=== PATIENT | female | born 2000 | race Caucasian/White ===

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

== ENCOUNTER → 2021-05-03 | Outpatient (CLI) | payer OTHER ==
[2021-05-03 23:24] LABS: Follicle Stimulating Hormone 4.8 mIU/mL; Luteinizing Hormone 10.7 mIU/mL; Prolactin 23.4 ng/mL (2.800-29.200)
[2021-05-03 23:56] LABS: Basophils # (A) 0.04 X 10*3/uL (0.00-0.10); Basophils % (A) 0.5 %; Eosinophils # (A) 0.14 X 10*3/uL (0.04-0.35); Eosinophils % (A) 1.9 %; HCT 40.7 % (37.2-46.3); HGB 12.9 g/dL (12.0-15.0); Immature Grans, Automated 0.5 %; Lymphocytes # (A) 2.41 X 10*3/uL (0.90-5.00); Lymphocytes % (A) 32.6 %; MCH 29.5 pg (27.0-32.0); MCHC 31.7 g/dL (32.0-37.0); MCV 93.1 fL (80.0-97.0); Mean Platelet Volume 11.4 fL (9.5-12.2); Monocytes # (A) 0.68 X 10*3/uL (0.20-1.00); Monocytes % (A) 9.2 %; NRBC Per 100 WBC 0 /100 WBCS (0.0-0.0); Neutrophils # (A) 4.08 X 10*3/uL (1.80-7.70); Neutrophils % (A) 55.3 %; Platelet Count 212 X 10*3/uL (140-440); RBC 4.37 X 10*6/uL (4.10-5.20); RDW 12.7 % (11.5-14.5); WBC 7.39 X 10*3/uL (4.50-10.00)
== END | disposition home or self-care (01) ==
LOC: LABWHC1 16:22
DX: N92.6 Irregular menstruation, unspecified (principal); N64.3 Galactorrhea not associated with childbirth
CPT/HCPCS: 36415; 83001; 83002; 84144; 84146; 84403; 84443; 85025

== ENCOUNTER 2022-02-28 09:34 | Emergency (ER) | payer OTHER ==
[2022-02-28 09:45] VITALS: RESP 18; TEMP 98.1
--- NOTE | 2022-02-28 10:22 | ED ---
Female Urogenital HPI - General Chief complaint: Vaginal Bleeding Stated complaint: vaginal bleeding - 5 weeks Time Seen by Provider: 02/28/22 09:50 Source: patient, RN notes reviewed Mode of arrival: ambulatory Limitations: no limitations - History of Present Illness Initial comments: This is a 22-year-old female who presents to the emergency department for vaginal bleeding in . She is and approximately 5 weeks . She has an appointment with Dr. William next month and her first ultrasound is scheduled for 1 week from now. The bleeding started 3 days ago and she states that it has been fairly light. Denies passing any clots. She has minor lower abdominal discomfort and nausea. However, she states that she's had nausea since she found out that she was a couple of weeks ago. She had been taking Prozac for depression and a personality disorder. She was told by the prescribing provider at [facility] that she had to stop this cold turkey due to the , and she feels like her mood has been significantly impacted. However, during her in 2018, she was given permission by her laboratory scientist to take this and had no problems with it. She inquired as to if she could resume this. Denies any fevers, chills, sore throat, cough, dyspnea, chest pain, palpitations, vomiting, diarrhea, back pain, or headaches. MD Complaint: vaginal bleeding Onset/Timin -: days(s) Patient : Yes Number of weeks : 5 - Related Data Home Medications Medication Instructions Recorded Confirmed Acetaminophen [Tylenol] 1,000 mg PO Q3H PRN 09/17/19 09/17/19 Ibuprofen [Motrin Ib] 600 mg PO Q3H PRN 09/17/19 09/17/19 Previous Rx's Medication Instructions Recorded Amoxicillin 875 mg PO Q12HR #20 tablet 09/14/19 Levofloxacin [Levaquin] 500 mg PO DAILY #10 tab 09/17/19 Doxylamine Succinate/Vit B6 1 each PO QID PRN #30 tab 02/28/22 [Doxylamine-Pyridoxine 10-10 mg] Allergies Allergy/AdvReac Type Severity Reaction Status Date / Time methylphenidate Allergy Confusion Verified 02/28/22 09:45 [From Concerta] Review of Systems ROS Statement: Those systems with pertinent positive or pertinent negative responses have been documented in the HPI. ROS Other: All systems not noted in ROS Statement are negative. Past Medical History Past Medical History: No Reported History History of Any Multi-Drug Resistant Organisms: None Reported Past Surgical History: Section Past Anesthesia/Blood Transfusion Reactions: Unable to Obtain Past Psychological History: Anxiety, Depression Smoking Status: Vaper Past Alcohol Use History: Occasional Past Drug Use History: Marijuana General Exam Limitations: no limitations General appearance: alert, in no apparent distress Head exam: Present: atraumatic, normocephalic, normal inspection Respiratory exam: Present: normal lung sounds bilaterally. Absent: respiratory distress, wheezes, rales, rhonchi, stridor Cardiovascular Exam: Present: regular rate, normal rhythm, normal heart sounds. Absent: systolic murmur, diastolic murmur, rubs, gallop, clicks GI/Abdominal exam: Present: normal bowel sounds Neurological exam: Present: alert, oriented X3, CN II-XII intact Psychiatric exam: Present: normal affect, normal mood Skin exam: Present: warm, dry, intact, normal color. Absent: rash Course Vital Signs 02/28/22 02/28/22 09:43 12:39 Temperature 98.1 F Pulse Rate 68 67 Respiratory 18 18 Rate Blood Pressure 119/74 O2 Sat by Pulse 99 98 Oximetry Medical Decision Making - Medical Decision Making This is a 22-year-old female who presents to the emergency department for vaginal bleeding in . Was pt. sent in by a medical professional or institution? @ -No Did you speak to anyone other than the patient for history? @ -No Did you review nursing and triage notes? @ -Agree, accurate with regards to the patient's symptoms. Were old charts reviewed? @ -No Differential Diagnosis? @ Differential Vaginal Bleeding: Spontaneous , threatened , molar , ectopic , bloody show, incompetent cervix, abruptioplacenta, placenta previa, uterine rupture, dysfunctional uterine bleeding, hemorrhage, uterine fibroids, this is not meant to be an all-inclusive list. What testing was considered but not performed? (CT, X-rays, U/S, labs)? Why? @ -None What meds were considered but not given? Why? @ -None Did you discuss the management of the patient with other professionals? @ -No Did you reconcile home meds? @ -No Was smoking cessation discussed for >3mins.? @ -I discussed smoking cessation for greater than 3 minutes. The risk of smoking were discussed with the patient including but not limited to risks of cancer, stroke, coronary artery disease and COPD. Also discussed with patient were multiple methods of quitting smoking. Lastly we discussed the financial cost of smoking. Was critical care preformed (if so, how long)? @ -No Were there social determinants of health that impacted care today? How? (Homelessness, low income, unemployed, alcoholism, drug addiction, transportation, low edu. Level, literacy, decrease access to med. care, nursing home, rehab)? @ -No Was there de-escalation of care discussed even if they declined? (Discuss DNR or withdrawal of care, Hospice)? @ -No What co-morbidities impacted this encounter? (DM, HTN, Smoking, COPD, CAD, Cancer, CVA, Hep., AIDS, mental health diagnosis, sleep apnea, morbid obesity)? @ -Morbid obesity. Was patient admitted / discharged? @ -Discharged. Lab work obtained and found to be nonactionable. Urinalysis negative for signs of a UTI or bacteriuria. Patient is Rh+ and no RhoGAM is indicated. The ultrasound could not visualize an IUP, likely due to the patient not being far along enough in her . She is instructed to contact her laboratory scientist for a lab order to have the hCG repeated in 2 days. She will also follow-up for a repeat ultrasound as scheduled in 1 week. Prescription for diclegis provided for the nausea and vomiting. Dosing instructions reviewed. Advised that if this is not covered by insurance or if it is too expensive, she can purchase [id number] vitamin B6 and Unisom. Instructed her to take Tylenol as needed for pain and to begin taking a vitamin. With regards to the Prozac, she is advised to contact her laboratory scientist for clearance to resume this. Undiagnosed new problem with uncertain prognosis? @ -None Drug Therapy requiring intensive monitoring for toxicity (Heparin, Nitro, Insulin, Cardizem)? @ -None Were any procedures done? @ -None Diagnosis/symptom? @ -Vaginal bleeding in Acute, or Chronic, or Acute on Chronic? @ -Acute Uncomplicated (without systemic symptoms) or Complicated (systemic symptoms)? @ -Uncomplicated Side effects of treatment? @ -None Exacerbation, Progression, or Severe Exacerbation] @ -Not applicable Poses a threat to life or bodily function? @ -None this time. Return precautions reviewed in depth, the patient is instructed to return to the emergency department with any new, worsening, or concerning symptoms. Patient verbalized understanding. This case was discussed in detail with the attending ED physician, Dr. Adames. Presentation, findings, and treatment plan discussed in detail as well. - Lab Data Result diagrams: 02/28/22 10:26 02/28/22 10:26 Lab Results 02/28/22 02/28/22 02/28/22 Range/Units 10:26 10: 10:26 WBC 6.5 (3.8-10.6) k/uL RBC 4.53 (3.80-5.40) m/uL Hgb 13.0 (11.4-16.0) gm/dL Hct 39.1 (34.0-46.0) % MCV 86.3 (80.0-100.0) fL MCH 28.7 (25.0-35.0) pg MCHC 33.3 (31.0-37.0) g/dL RDW 13.3 (11.5-15.5) % Plt Count 215 (150-450) k/uL MPV 8.1 Neutrophils % 64 % Lymphocytes % 25 % Monocytes % 6 % Eosinophils % 2 % Basophils % 0 % Neutrophils # 4.1 (1.3-7.7) k/uL Lymphocytes # 1.7 (1.0-4.8) k/uL Monocytes # 0.4 (0-1.0) k/uL Eosinophils # 0.2 (0-0.7) k/uL Basophils # 0.0 (0-0.2) k/uL PT (9.0-12.0) sec INR (<1.2) APTT (22.0-30.0) sec Sodium 139 (137-145) mmol/L Potassium 4.0 (3.5-5.1) mmol/L Chloride 108 H (98-107) mmol/L Carbon Dioxide 25 (22-30) mmol/L Anion Gap 6 mmol/L BUN 7 (7-17) mg/dL Creatinine 0.50 L (0.52-1.04) mg/dL Est GFR (CKD-EPI)AfAm >90 (>60 ml/min/1.73 sqM) Est GFR (CKD-EPI)NonAf >90 (>60 ml/min/1.73 sqM) Glucose 92 (74-99) mg/dL Calcium 9.0 (8.4-10.2) mg/dL Total Bilirubin 0.2 (0.2-1.3) mg/dL AST 32 (14-36) U/L ALT 47 H (4-34) U/L Alkaline Phosphatase 69 (38-126) U/L Total Protein 7.4 (6.3-8.2) g/dL Albumin 4.3 (3.5-5.0) g/dL HCG, Quant 5829.6 mIU/mL Urine Color Yellow Urine Appearance Clear (Clear) Urine pH 6.5 (5.0-8.0) Ur Specific [place] 1.023 (1.001-1.035) Urine Protein Negative (Negative) Urine Glucose (UA) Negative (Negative) Urine Ketones Negative (Negative) Urine Blood Negative (Negative) Urine Nitrite Negative (Negative) Urine Bilirubin Negative (Negative) Urine Urobilinogen <2.0 (<2.0) mg/dL Ur Leukocyte Esterase Negative (Negative) Blood Type Blood Type Recheck Bld Type Recheck Status 02/28/22 02/28/22 Range/Units 10:26 10:26 WBC (3.8-10.6) k/uL RBC (3.80-5.40) m/uL Hgb (11.4-16.0) gm/dL Hct (34.0-46.0) % MCV (80.0-100.0) fL MCH (25.0-35.0) pg MCHC (31.0-37.0) g/dL RDW (11.5-15.5) % Plt Count (150-450) k/uL MPV Neutrophils % % Lymphocytes % % Monocytes % % Eosinophils % % Basophils % % Neutrophils # (1.3-7.7) k/uL Lymphocytes # (1.0-4.8) k/uL Monocytes # (0-1.0) k/uL Eosinophils # (0-0.7) k/uL Basophils # (0-0.2) k/uL PT 9.9 (9.0-12.0) sec INR 0.9 (<1.2) APTT 23.0 (22.0-30.0) sec Sodium (137-145) mmol/L Potassium (3.5-5.1) mmol/L Chloride (98-107) mmol/L Carbon Dioxide (22-30) mmol/L Anion Gap mmol/L BUN (7-17) mg/dL Creatinine (0.52-1.04) mg/dL Est GFR (CKD-EPI)AfAm (>60 ml/min/1.73 sqM) Est GFR (CKD-EPI)NonAf (>60 ml/min/1.73 sqM) Glucose (74-99) mg/dL Calcium (8.4-10.2) mg/dL Total Bilirubin (0.2-1.3) mg/dL AST (14-36) U/L ALT (4-34) U/L Alkaline Phosphatase (38-126) U/L Total Protein (6.3-8.2) g/dL Albumin (3.5-5.0) g/dL HCG, Quant mIU/mL Urine Color Urine Appearance (Clear) Urine pH (5.0-8.0) Ur Specific [place] (1.001-1.035) Urine Protein (Negative) Urine Glucose (UA) (Negative) Urine Ketones (Negative) Urine Blood (Negative) Urine Nitrite (Negative) Urine Bilirubin (Negative) Urine Urobilinogen (<2.0) mg/dL Ur Leukocyte Esterase (Negative) Blood Type A Positive Blood Type Recheck A Pos Bld Type Recheck Status No - Radiology Data Radiology results: report reviewed, image reviewed Disposition Clinical Impression: Vaginal bleeding during Disposition: HOME SELF-CARE Instructions (If sedation given, give patient instructions): Threatened Miscarriage (ED), Non-Threatening First Trimester Vaginal Bleed (ED) Additional Instructions: Return to the emergency department with any new, worsening, or concerning symptoms. You can take the Diclegis up to 4 times daily as needed for nausea and vomiting. If your insurance will not cover it or if it is too expensive, you can purchases [id number] vitamin B6 and Unisom. Your current hCG level is 5829.6, because the ultrasound could not visualize anything, you will need to have this repeated in 2 days. Contact your laboratory scientist office to have this ordered. Additionally, speak with your laboratory scientist office about resuming the Prozac. Begin taking a vitamin and be sure that you're only taking Tylenol as needed for any pain. Prescriptions: Doxylamine Succinate/Vit B6 [Doxylamine-Pyridoxine 10-10 mg] 1 each PO QID PRN #30 tab PRN Reason: Nausea And Vomiting Is patient prescribed a controlled substance at d/c from ED?: No Referrals: Ag Chairez MD [Primary Care Provider] - 1-2 days
[2022-02-28 10:37] LABS: Basophils % (A) 0 %; Eosinophils # (A) 0.2 k/uL (0-0.7); Eosinophils % (A) 2 %; HCT 39.1 % (34.0-46.0); Lymphocytes # (A) 1.7 k/uL (1.0-4.8); Lymphocytes % (A) 25 %; MCH 28.7 pg (25.0-35.0); MCHC 33.3 g/dL (31.0-37.0); MCV 86.3 fL (80.0-100.0); Mean Platelet Volume 8.1; Monocytes # (A) 0.4 k/uL (0-1.0); Monocytes % (A) 6 %; Neutrophils # (A) 4.1 k/uL (1.3-7.7); Neutrophils % (A) 64 %; Platelet Count 215 k/uL (150-450); RBC 4.53 m/uL (3.80-5.40); RDW 13.3 % (11.5-15.5); WBC 6.5 k/uL (3.8-10.6)
[2022-02-28 10:47] LABS: INR 0.9 (<1.2); Prothrombin Time 9.9 sec (9.0-12.0)
[2022-02-28 10:49] LABS: ALT 47 U/L (4-34); AST 32 U/L (14-36); African American GFR (CKD) >90 (>60 ml/min/1.73 sqM); Albumin 4.3 g/dL (3.5-5.0); Alkaline Phosphatase 69 U/L (38-126); Anion Gap 6 mmol/L; Blood Urea Nitrogen 7 mg/dL (7-17); Carbon Dioxide 25 mmol/L (22-30); Chloride 108 mmol/L (98-107); Glucose 92 mg/dL (74-99); Non-African American GFR(CKD) >90 (>60 ml/min/1.73 sqM); Sodium 139 mmol/L (137-145); Total Bilirubin 0.2 mg/dL (0.2-1.3); Total Protein 7.4 g/dL (6.3-8.2)
[2022-02-28 10:56] LABS: Appearance,Urine Clear (Clear); Bilirubin,Urine Negative (Negative); Blood,Urine Negative (Negative); Color,Urine Yellow; Glucose,Urine (UA) Negative (Negative); Ketones,Urine Negative (Negative); Leukocyte Esterase,Urine Negative (Negative); Nitrite,Urine Negative (Negative); PH, Urine 6.5 (5.0-8.0); Protein,Urine Negative (Negative); Specific Gravity,Urine 1.023 (1.001-1.035); Urobilinogen,Urine <2.0 mg/dL (<2.0)
[2022-02-28 11:04] LABS: HCG,Quantitative Serum 5829.6 mIU/mL
--- NOTE | 2022-02-28 11:36 | US ---
EXAMINATION TYPE: Transabdominal DATE OF EXAM: 02/28/2022 11:13 AM COMPARISON: NONE CLINICAL HISTORY: Vaginal bleeding in . Spotting. No prior ultrasound yet with this pregnan cy. EXAM PERFORMED: Transvaginal (TV) and Transabdominal (TA) EXAM MEASUREMENTS: GESTATIONAL AGE / DATING Physician Established: Not yet established Dates by LMP: (5 weeks/2 days) EDC: 10/29/2022 Dates by First Scan: No previous this is first scan Dates by Current Scan for: No IUP seen at this time MATERNAL ANATOMY Uterus: 11.5 x 8.3 x 5.2 cm Right Ovary: 3.9 x 2.7 x 2.3 cm Left Ovary: 3.4 x 1.9 x 1.3 cm Post CDS / Adnexa: no free fluid Presence of free fluid: no Presence of corpus luteal cyst: right ovary = 2.0 x 1.9 x 1.6 cm GESTATION / SURVEY IUP: No IUP seen at this time Date of LMP: 01/22/2022, Beta HcG (if available): Available at end of ultrasound exam- 5, 829.6 No GS, YS or CRL visualized at time of scan. Endometrium appears thickened. Limited transvaginal ex am due to uterine size and penetration. IMPRESSION: No intrauterine seen. Differential diagnosis includes missed , normal too early to detect, or ectopic . Correlate clinically.
[2022-02-28 12:40] VITALS: BP 119/74; PULSE 67
== END 2022-02-28 12:39 | disposition home or self-care (01) ==
LOC: EC 09:34
DX: O20.9 Hemorrhage in early pregnancy, unspecified (principal); O99.341 Other mental disorders complicating pregnancy, first trimester; F41.9 Anxiety disorder, unspecified; F32.A Depression, unspecified; O99.331 Smoking (tobacco) complicating pregnancy, first trimester; F17.290 Nicotine dependence, other tobacco product, uncomplicated; F12.90 Cannabis use, unspecified, uncomplicated; Z88.8 Allergy status to other drugs, medicaments and biological substances; Z3A.01 Less than 8 weeks gestation of pregnancy
CPT/HCPCS: 36415; 76801; 76817; 80053; 81003; 84702; 85025; 85610; 85730; 86900; 86901; 99284

== ENCOUNTER 2022-03-02 15:52 | Emergency (ER) | payer OTHER ==
[2022-03-02 15:59] VITALS: BP 127/77; TEMP 97.9
--- NOTE | 2022-03-02 16:30 | ED ---
Female Urogenital HPI - General Chief complaint: Vaginal Bleeding Stated complaint: Vaginal Bleeding,5wks Time Seen by Provider: 03/02/22 16:21 Source: patient Mode of arrival: ambulatory Limitations: no limitations - History of Present Illness Initial comments: This patient is a 22-year-old woman who presents with complaint that she is having continued vaginal bleeding. This started 5 days ago. The patient was seen here 2 days ago and had workup. She does relate that she is between 5-6 weeks now. She is not having abdominal pain. No change in urination or bowel movements. No vomiting. There has been some occasional nausea. No fever or chills. MD Complaint: vaginal bleeding Onset/Timin -: days(s) Severity scale (1-10): 0 Consistency: constant Improves with: none Worsens with: none Patient : Yes Number of weeks : 5 Associated Symptoms: denies other symptoms - Related Data Home Medications Medication Instructions Recorded Confirmed FLUoxetine HCL [PROzac] 10 mg PO DAILY 03/02/22 03/02/22 FLUoxetine HCL [PROzac] 20 mg PO DAILY 03/02/22 03/02/22 Vit No.179/Iron/Folic 1 tab PO HS 03/02/22 03/02/22 [ Tablet] Allergies Allergy/AdvReac Type Severity Reaction Status Date / Time methylphenidate AdvReac Confusion Verified 03/02/22 17:31 [From Concerta] Review of Systems ROS Statement: Those systems with pertinent positive or pertinent negative responses have been documented in the HPI. ROS Other: All systems not noted in ROS Statement are negative. Constitutional: Denies: fever, chills Respiratory: Denies: cough, dyspnea Cardiovascular: Denies: chest pain, palpitations, edema Gastrointestinal: Reports: nausea. Denies: abdominal pain, vomiting, diarrhea, constipation Genitourinary: Reports: as per HPI, abnormal menses. Denies: dysuria, hematu mina, discharge Musculoskeletal: Denies: back pain Skin: Denies: rash Neurological: Denies: headache, weakness Past Medical History Past Medical History: No Reported History History of Any Multi-Drug Resistant Organisms: None Reported Past Surgical History: Section Past Anesthesia/Blood Transfusion Reactions: Unable to Obtain Past Psychological History: Anxiety, Depression Smoking Status: Current every day smoker, Vaper Past Alcohol Use History: Occasional Past Drug Use History: Marijuana General Exam Limitations: no limitations General appearance: alert, in no apparent distress Head exam: Present: atraumatic, normocephalic Eye exam: Present: normal appearance. Absent: scleral icterus, conjunctival injection Neck exam: Present: normal inspection Respiratory exam: Present: normal lung sounds bilaterally. Absent: respiratory distress, wheezes, rales, rhonchi, stridor Cardiovascular Exam: Present: regular rate, normal rhythm, normal heart sounds. Absent: systolic murmur, diastolic murmur, rubs, gallop GI/Abdominal exam: Present: soft. Absent: distended, tenderness, guarding, rebound, rigid, mass Extremities exam: Present: normal inspection, normal capillary refill. Absent: pedal edema, calf tenderness Back exam: Present: normal inspection. Absent: CVA tenderness (R), CVA tenderness (L) Neurological exam: Present: alert Skin exam: Present: warm, dry, intact, normal color. Absent: rash Course Vital Signs 03/02/22 03/02/22 15:56 20:36 Temperature 97.9 F Pulse Rate 81 73 Respiratory 18 16 Rate Blood Pressure 127/77 O2 Sat by Pulse 97 97 Oximetry Medical Decision Making - Medical Decision Making Patient is 22-year-old woman here with first trimester vaginal bleeding. She did have lab testing as well as ultrasound which does not show acute surgical condition. She'll follow with her warehouse guard. We discussed appropriate follow-up as well as return parameters Was pt. sent in by a medical professional or institution? @ -no Did you speak to anyone other than the patient for history? @ -[no Did you review nursing and triage notes? @ -[agree Were old charts reviewed? @ -[Previous ER record Differential Diagnosis? @ -[threatened miscarriage, implantation bleeding, subchorionic hemorrhge, ectopic , among other conditions EKG interpreted by me (3pts min.)? @ -[none] X-rays interpreted by me (1pt min.)? @ -[none] CT interpreted by me (1pt min.)? @ -[none] U/S interpreted by me (1pt. min.)? @ -[none] What testing was considered but not performed? (CT, X-rays, U/S, labs)? Why? @ [no What meds were considered but not given? Why? @ -[none] Did you discuss the management of the patient with other professionals? @ -no Did you reconcile home meds? @ -[none] Was smoking cessation discussed for >3mins.? @ -[none] Was critical care preformed (if so, how long)? @ -[none] Were there social determinants of health that impacted care today? How? (Homelessness, low income, unemployed, alcoholism, drug addiction, transportation, low edu. Level, literacy, decrease access to med. care, fci, rehab)? @ -[no Was there de-escalation of care discussed even if they declined? (Discuss DNR or withdrawal of care, Hospice)? @ -[no What co-morbidities impacted this encounter? (DM, HTN, Smoking, COPD, CAD, Cancer, CVA, Hep., AIDS, mental health diagnosis, sleep apnea, morbid obesity)? @ -[no Was patient admitted / discharged? @ -[Discharged Undiagnosed new problem with uncertain prognosis? @ -[none] Drug Therapy requiring intensive monitoring for toxicity (Heparin, Nitro, Insulin, Cardizem)? @ -[none] Were any procedures done? @ -[none] Diagnosis/symptom? @ -[Threatened miscarriage Acute, or Chronic, or Acute on Chronic? @ -[Acute Uncomplicated (without systemic symptoms) or Complicated (systemic symptoms)? @ -[Uncomplicated Side effects of treatment? @ -[none] Exacerbation, Progression, or Severe Exacerbation] @ -[no] Poses a threat to life or bodily function? @ -[no] - Lab Data Lab Results 03/02/22 03/02/22 Range/Units 17:16 17:16 HCG, Quant 82182.6 mIU/mL Urine Color Yellow Urine Appearance Clear (Clear) Urine pH 6.0 (5.0-8.0) Ur Specific [place] 1.027 (1.001-1.035) Urine Protein 1+ H (Negative) Urine Glucose (UA) Negative (Negative) Urine Ketones 2+ H (Negative) Urine Blood Large H (Negative) Urine Nitrite Negative (Negative) Urine Bilirubin Negative (Negative) Urine Urobilinogen <2.0 (<2.0) mg/dL Ur Leukocyte Esterase Trace H (Negative) Urine RBC >182 H (0-5) /hpf Urine WBC 7 H (0-5) /hpf Ur Squamous Epith Cells 3 (0-4) /hpf Hyaline Casts 2 (0-2) /lpf Urine Mucus Many H (None) /hpf Disposition Clinical Impression: Threatened miscarriage Disposition: HOME SELF-CARE Condition: Good Instructions (If sedation given, give patient instructions): Threatened Miscarriage (ED) Is patient prescribed a controlled substance at d/c from ED?: No Referrals: Ag Chairez MD [Primary Care Provider] - 1-2 days
[2022-03-02 17:43] LABS: Appearance,Urine Clear (Clear); Bilirubin,Urine Negative (Negative); Blood,Urine Large (Negative); Color,Urine Yellow; Glucose,Urine (UA) Negative (Negative); Hyaline Casts,Urine 2 /lpf (0-2); Ketones,Urine 2+ (Negative); Leukocyte Esterase,Urine Trace (Negative); Mucus,Urine Many /hpf; Nitrite,Urine Negative (Negative); Protein,Urine 1+ (Negative); RBC,Urine >182 /hpf (0-5); Specific Gravity,Urine 1.027 (1.001-1.035); Squamous Epithelial Cell,Urine 3 /hpf (0-4); Urobilinogen,Urine <2.0 mg/dL (<2.0); WBC,Urine 7 /hpf (0-5)
--- NOTE | 2022-03-02 20:00 | US ---
EXAMINATION TYPE: Transabdominal DATE OF EXAM: 03/02/2022 7:29 PM COMPARISON: Ultrasound 02/28/2022 CLINICAL HISTORY: first trimester bleeding. vaginal bleeding for 5 days EXAM PERFORMED: Transvaginal (TV) and Transabdominal (TA) EXAM MEASUREMENTS: GESTATIONAL AGE / DATING Physician Established: Not yet established Dates by LMP: (5 weeks/4 days) EDC: 10/29/22 Dates by First Scan: no IUP visualized on prior exam Dates by Current Scan for: (5 weeks/3 days) - MSD EDC: 10/30/22 MATERNAL ANATOMY Uterus: 11.5 x 9.0 x 5.2cm Right Ovary: 4.3 x 2.3 x 2.3cm Left Ovary: 2.8 x 1.4 x 2.4cm Post CDS / Adnexa: appears wnl Presence of free fluid: no Presence of corpus luteal cyst: yes, hypoechoic area right ovary = 2.5 x 2.4 x 1.8cm Presence of subchorionic bleed: complex area superior to GS = 2.3cm, possible bleed GESTATION / SURVEY MSD: 0.8cm (5 weeks/3 days) Yolk Sac (normal less than 6mm): not seen IUP: possible GS visualized, no evidence of pole at this time Date of LMP: 01/22/22 Beta HcG (if available): 01090.6 IMPRESSION: Candidate for intrauterine gestational sac is visualized on this examination, not seen on the 02/28/19 ultrasound, with MSD corresponding with 5 weeks 3 days gestation. Short interval follow-up beta hC G and ultrasound recommended.
[2022-03-02 20:37] VITALS: PULSE 73; RESP 16
== END 2022-03-02 20:37 | disposition home or self-care (01) ==
LOC: EC 15:52
DX: O20.0 Threatened abortion (principal); O99.341 Other mental disorders complicating pregnancy, first trimester; F41.9 Anxiety disorder, unspecified; F32.A Depression, unspecified; O99.331 Smoking (tobacco) complicating pregnancy, first trimester; F17.200 Nicotine dependence, unspecified, uncomplicated; O99.321 Drug use complicating pregnancy, first trimester; F12.90 Cannabis use, unspecified, uncomplicated; Z88.8 Allergy status to other drugs, medicaments and biological substances; Z3A.01 Less than 8 weeks gestation of pregnancy
CPT/HCPCS: 36415; 76801; 76817; 81001; 84702; 99284

== ENCOUNTER 2022-03-04 23:56 | Emergency (ER) | payer OTHER ==
[2022-03-05 00:12] VITALS: TEMP 98.2
[2022-03-05 01:47] LABS: Basophils # (A) 0.1 k/uL (0-0.2); Basophils % (A) 1 %; Eosinophils # (A) 0.2 k/uL (0-0.7); Eosinophils % (A) 2 %; HGB 12.1 gm/dL (11.4-16.0); Lymphocytes # (A) 2.5 k/uL (1.0-4.8); Lymphocytes % (A) 30 %; MCH 28.9 pg (25.0-35.0); MCHC 33.6 g/dL (31.0-37.0); MCV 86.1 fL (80.0-100.0); Mean Platelet Volume 8.3; Monocytes # (A) 0.6 k/uL (0-1.0); Monocytes % (A) 7 %; Neutrophils # (A) 4.8 k/uL (1.3-7.7); Neutrophils % (A) 58 %; Platelet Count 226 k/uL (150-450); RBC 4.18 m/uL (3.80-5.40); RDW 13.5 % (11.5-15.5); WBC 8.3 k/uL (3.8-10.6)
--- NOTE | 2022-03-05 01:52 | ED ---
Female Urogenital HPI - General Chief complaint: Vaginal Bleeding Stated complaint: Bleeding, 6 wks preg Time Seen by Provider: 03/05/22 00:13 Source: patient, RN notes reviewed Mode of arrival: ambulatory Limitations: no limitations - History of Present Illness Initial comments: This is a 22-year-old female who presents to the emergency department for v aginal bleeding in . She is approximately 6 weeks and was evaluated here on 02/28 and 03/02 as well, and states she returns today because the bleeding has gotten heavier. She feels tired and had been changing a pad every 15 minutes. This did seem to improve to some extent, but she still wants to make sure that she is not losing too much blood. Denies any abdominal pain, nausea, or vomiting. Denies any fevers, chills, sore throat, cough, dyspnea, chest pain, palpita tions, abdominal pain, nausea, vomiting, diarrhea, back pain, or headaches. MD Complaint: vaginal bleeding Patient : Yes Number of weeks : 6 - Related Data Home Medications Medication Instructions Recorded Confirmed FLUoxetine HCL [PROzac] 10 mg PO DAILY 03/02/22 03/02/22 FLUoxetine HCL [PROzac] 20 mg PO DAILY 03/02/22 03/02/22 Vit No.179/Iron/Folic 1 tab PO HS 03/02/22 03/02/22 [ Tablet] Allergies Allergy/AdvReac Type Severity Reaction Status Date / Time methylphenidate AdvReac Confusion Verified 03/02/22 17:31 [From Concerta] Review of Systems ROS Statement: Those systems with pertinent positive or pertinent negative responses have been documented in the HPI. ROS Other: All systems not noted in ROS Statement are negative. Past Medical History Past Medical History: No Reported History History of Any Multi-Drug Resistant Organisms: None Reported Past Surgical History: Section Past Anesthesia/Blood Transfusion Reactions: Unable to Obtain Past Psychological History: Anxiety, Depression Smoking Status: Current every day smoker, Vaper Past Alcohol Use History: Occasional Past Drug Use History: Marijuana General Exam Limitations: no limitations General appearance: alert, in no apparent distress Head exam: Present: atraumatic, normocephalic, normal inspection Respiratory exam: Present: normal lung sounds bilaterally. Absent: respiratory distress, wheezes, rales, rhonchi, stridor Cardiovascular Exam: Present: regular rate, normal rhythm, normal heart sounds. Absent: systolic murmur, diastolic murmur, rubs, gallop, clicks GI/Abdominal exam: Present: normal bowel sounds Neurological exam: Present: alert, oriented X3, CN II-XII intact Psychiatric exam: Present: normal affect, normal mood Skin exam: Present: warm, dry, intact, normal color. Absent: rash Course Vital Signs 03/05/22 03/05/22 00:09 02:48 Temperature 98.2 F Pulse Rate 81 78 Respiratory 18 15 Rate Blood Pressure 151/82 133/74 O2 Sat by Pulse 97 100 Oximetry Medical Decision Making - Medical Decision Making This is a 22-year-old female who presents to the emergency department for vaginal bleeding in . Was pt. sent in by a medical professional or institution? @ -No Did you speak to anyone other than the patient for history? @ -No Did you review nursing and triage notes? @ -Yes, and I agree, it is accurate with regards to the patient's symptoms. Were old charts reviewed? @ -No Differential Diagnosis? @ -Differential Vaginal Bleeding: Spontaneous , threatened , molar , ectopic , incompetent cervix, placenta previa, uterine rupture, dysfunctional uterine bleeding, hemorrhage, uterine fibroids, malignancy, coagulopathy, PID, cervicitis, adenomyosis, vaginal trauma, this is not meant to be an all- inclusive list. What testing was considered but not performed? (CT, X-rays, U/S, labs)? Why? @ -None What meds were considered but not given? Why? @ -None Did you discuss the management of the patient with other professionals? @ -No Did you reconcile home meds? @ -No Was smoking cessation discussed for >3mins.? @ -No Was critical care preformed (if so, how long)? @ -No Were there social determinants of health that impacted care today? How? (Home lessness, low income, unemployed, alcoholism, drug addiction, transportation, low edu. Level, literacy, decrease access to med. care, longterm, rehab)? @ -No Was there de-escalation of care discussed even if they declined? (Discuss DNR or withdrawal of care, Hospice)? @ -No What co-morbidities impacted this encounter? (DM, HTN, Smoking, COPD, CAD, Cancer, CVA, Hep., AIDS, mental health diagnosis, sleep apnea, morbid obesity)? @ -Morbid obesity Was patient admitted / discharged? @ -Discharged. Lab work obtained revealing no evidence of acute blood loss anemia. When compared to her hCG level 3 days ago, this has started to decrease. Given the persistent bleeding and the decrease in hCG level, this is most consistent with an incomplete . This was discussed with the patient who expresses understanding. Advised that she will need to contact her BRACER and have her blood work repeated to ensure that the hCG level reaches 0. Advised that she may continue to have heavy bleeding, however if she begins to feel dizzy or lightheaded, she should return to the emergency department immediately. She declines the need for any nausea medication at this time. Undiagnosed new problem with uncertain prognosis? @ -None Drug Therapy requiring intensive monitoring for toxicity (Heparin, Nitro, Insulin, Cardizem)? @ -None Were any procedures done? @ -None Diagnosis/symptom? @ -Incomplete Acute, or Chronic, or Acute on Chronic? @ -Acute Uncomplicated (without systemic symptoms) or Complicated (systemic symptoms)? @ -Uncomplicated Side effects of treatment? @ -None Exacerbation, Progression, or Severe Exacerbation] @ -Progression of bleeding Poses a threat to life or bodily function? @ -Not at this time, however if she loses too much blood, it can become a life threatening issue. Return precautions reviewed in depth, the patient is instructed to return to the emergency department with any new, worsening, or concerning symptoms. Patient verbalized understanding. This case was discussed in detail with the attending ED physician, Dr. French. Presentation, findings, and treatment plan discussed in detail as well. - Lab Data Result diagrams: 03/05/22 01:06 03/05/22 01:06 Lab Results 03/05/22 03/05/22 03/05/22 Range/Units 01:06 01:06 01:06 WBC 8.3 (3.8-10.6) k/uL RBC 4.18 (3.80-5.40) m/uL Hgb 12.1 (11.4-16.0) gm/dL Hct 36.0 (34.0-46.0) % MCV 86.1 (80.0-100.0) fL MCH 28.9 (25.0-35.0) pg MCHC 33.6 (31.0-37.0) g/dL RDW 13.5 (11.5-15.5) % Plt Count 226 (150-450) k/uL MPV 8.3 Neutrophils % 58 % Lymphocytes % 30 % Monocytes % 7 % Eosinophils % 2 % Basophils % 1 % Neutrophils # 4.8 (1.3-7.7) k/uL Lymphocytes # 2.5 (1.0-4.8) k/uL Monocytes # 0.6 (0-1.0) k/uL Eosinophils # 0.2 (0-0.7) k/uL Basophils # 0.1 (0-0.2) k/uL PT 10.0 (9.0-12.0) sec INR 0.9 (<1.2) APTT 24.2 (22.0-30.0) sec Sodium (137-145) mmol/L Potassium (3.5-5.1) mmol/L Chloride (98-107) mmol/L Carbon Dioxide (22-30) mmol/L Anion Gap mmol/L BUN (7-17) mg/dL Creatinine (0.52-1.04) mg/dL Est GFR (CKD-EPI)AfAm (>60 ml/min/1.73 sqM) Est GFR (CKD-EPI)NonAf (>60 ml/min/1.73 sqM) Glucose (74-99) mg/dL Calcium (8.4-10.2) mg/dL Total Bilirubin (0.2-1.3) mg/dL AST (14-36) U/L ALT (4-34) U/L Alkaline Phosphatase (38-126) U/L Total Protein (6.3-8.2) g/dL Albumin (3.5-5.0) g/dL HCG, Quant mIU/mL Urine Color Red Urine Appearance Cloudy H (Clear) Urine pH 6.0 (5.0-8.0) Ur Specific [place] 1.024 (1.001-1.035) Urine Protein 1+ H (Negative) Urine Glucose (UA) Negative (Negative) Urine Ketones 1+ H (Negative) Urine Blood Large H (Negative) Urine Nitrite Negative (Negative) Urine Bilirubin Negative (Negative) Urine Urobilinogen 2.0 (<2.0) mg/dL Ur Leukocyte Esterase Small H (Negative) Urine RBC >182 H (0-5) /hpf Urine WBC 7 H (0-5) /hpf Ur Squamous Epith Cells 6 H (0-4) /hpf Urine Mucus Few H (None) /hpf Urine Yeast (Budding) Many H (None) /hpf Blood Type Blood Type Recheck Bld Type Recheck Status 03/05/22 03/05/22 Range/Units 01:06 01:40 WBC (3.8-10.6) k/uL RBC (3.80-5.40) m/uL Hgb (11.4-16.0) gm/dL Hct (34.0-46.0) % MCV (80.0-100.0) fL MCH (25.0-35.0) pg MCHC (31.0-37.0) g/dL RDW (11.5-15.5) % Plt Count (150-450) k/uL MPV Neutrophils % % Lymphocytes % % Monocytes % % Eosinophils % % Basophils % % Neutrophils # (1.3-7.7) k/uL Lymphocytes # (1.0-4.8) k/uL Monocytes # (0-1.0) k/uL Eosinophils # (0-0.7) k/uL Basophils # (0-0.2) k/uL PT (9.0-12.0) sec INR (<1.2) APTT (22.0-30.0) sec Sodium 138 (137-145) mmol/L Potassium 3.6 (3.5-5.1) mmol/L Chloride 106 (98-107) mmol/L Carbon Dioxide 25 (22-30) mmol/L Anion Gap 7 mmol/L BUN 7 (7-17) mg/dL Creatinine 0.63 (0.52-1.04) mg/dL Est GFR (CKD-EPI)AfAm >90 (>60 ml/min/1.73 sqM) Est GFR (CKD-EPI)NonAf >90 (>60 ml/min/1.73 sqM) Glucose 87 (74-99) mg/dL Calcium 9.4 (8.4-10.2) mg/dL Total Bilirubin 0.2 (0.2-1.3) mg/dL AST 27 (14-36) U/L ALT 44 H (4-34) U/L Alkaline Phosphatase 67 (38-126) U/L Total Protein 7.1 (6.3-8.2) g/dL Albumin 4.3 (3.5-5.0) g/dL HCG, Quant 81649.4 mIU/mL Urine Color Urine Appearance (Clear) Urine pH (5.0-8.0) Ur Specific [place] (1.001-1.035) Urine Protein (Negative) Urine Glucose (UA) (Negative) Urine Ketones (Negative) Urine Blood (Negative) Urine Nitrite (Negative) Urine Bilirubin (Negative) Urine Urobilinogen (<2.0) mg/dL Ur Leukocyte Esterase (Negative) Urine RBC (0-5) /hpf Urine WBC (0-5) /hpf Ur Squamous Epith Cells (0-4) /hpf Urine Mucus (None) /hpf Urine Yeast (Budding) (None) /hpf Blood Type A Positive Blood Type Recheck A Pos Bld Type Recheck Status No Disposition Clinical Impression: Incomplete Disposition: HOME SELF-CARE Instructions (If sedation given, give patient instructions): Miscarriage (ED) Additional Instructions: Return to the emergency department with any new, worsening, or concerning symptoms. Contact your BRACER and let her know that your hCG count has started to decrease. You will need to have your blood work repeated to make sure that this value reaches zero. Is patient prescribed a controlled substance at d/c from ED?: No Referrals: Ag Chairez MD [Primary Care Provider] - 1-2 days
[2022-03-05 01:57] LABS: INR 0.9 (<1.2); Partial Thromboplastin Time 24.2 sec (22.0-30.0)
[2022-03-05 01:59] LABS: ALT 44 U/L (4-34); AST 27 U/L (14-36); African American GFR (CKD) >90 (>60 ml/min/1.73 sqM); Albumin 4.3 g/dL (3.5-5.0); Alkaline Phosphatase 67 U/L (38-126); Anion Gap 7 mmol/L; Blood Urea Nitrogen 7 mg/dL (7-17); Calcium 9.4 mg/dL (8.4-10.2); Carbon Dioxide 25 mmol/L (22-30); Chloride 106 mmol/L (98-107); Glucose 87 mg/dL (74-99); Non-African American GFR(CKD) >90 (>60 ml/min/1.73 sqM); Potassium 3.6 mmol/L (3.5-5.1); Sodium 138 mmol/L (137-145); Total Bilirubin 0.2 mg/dL (0.2-1.3); Total Protein 7.1 g/dL (6.3-8.2)
[2022-03-05 02:06] LABS: Appearance,Urine Cloudy (Clear); Bilirubin,Urine Negative (Negative); Blood,Urine Large (Negative); Budding Yeast,Urine Many /hpf; Color,Urine Red; Glucose,Urine (UA) Negative (Negative); Ketones,Urine 1+ (Negative); Leukocyte Esterase,Urine Small (Negative); Mucus,Urine Few /hpf; Nitrite,Urine Negative (Negative); Protein,Urine 1+ (Negative); RBC,Urine >182 /hpf (0-5); Specific Gravity,Urine 1.024 (1.001-1.035); Squamous Epithelial Cell,Urine 6 /hpf (0-4); WBC,Urine 7 /hpf (0-5)
[2022-03-05 02:15] LABS: HCG,Quantitative Serum 10567.4 mIU/mL
[2022-03-05 02:48] VITALS: BP 133/74; PULSE 78; RESP 15
== END 2022-03-05 02:49 | disposition home or self-care (01) ==
LOC: EC 23:56
DX: O03.4 Incomplete spontaneous abortion without complication (principal); O9A.512 Psychological abuse complicating pregnancy, second trimester; O99.321 Drug use complicating pregnancy, first trimester; O99.711 Diseases of the skin and subcutaneous tissue complicating pregnancy, first trimester; F41.9 Anxiety disorder, unspecified; F32.A Depression, unspecified; F12.90 Cannabis use, unspecified, uncomplicated; F17.290 Nicotine dependence, other tobacco product, uncomplicated; Z88.8 Allergy status to other drugs, medicaments and biological substances
CPT/HCPCS: 36415; 80053; 81001; 84702; 85025; 85610; 85730; 86900; 86901; 99284

== ENCOUNTER 2022-09-05 21:37 | Emergency (ER) | payer OTHER ==
[2022-09-05 21:49] VITALS: BP 147/94; PULSE 60; RESP 18; TEMP 98.5
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
--- NOTE | 2022-09-05 22:54 | XR ---
EXAM: XR Left Elbow Complete, 3 or More Views CLINICAL HISTORY: ITS.REASON XR Reason: pain TECHNIQUE: Frontal, lateral and oblique views of the left elbow. COMPARISON: No relevant prior studies available. FINDINGS: Bones/joints: Unremarkable. No fracture or dislocation. Soft tissues: Unremarkable. IMPRESSION: No fracture or dislocation.
== END 2022-09-05 23:16 | disposition home or self-care (01) ==
LOC: EC 21:37
DX: S53.402A Unspecified sprain of left elbow, initial encounter (principal); F32.A Depression, unspecified; F41.9 Anxiety disorder, unspecified; F17.290 Nicotine dependence, other tobacco product, uncomplicated; F12.90 Cannabis use, unspecified, uncomplicated; Z88.8 Allergy status to other drugs, medicaments and biological substances; Z79.899 Other long term (current) drug therapy; X58.XXXA Exposure to other specified factors, initial encounter
CPT/HCPCS: 99283

== ENCOUNTER 2022-11-15 19:11 | Emergency (ER) | payer OTHER ==
--- NOTE | 2022-11-15 19:25 | ED ---
Headache HPI - General Source: patient, RN notes reviewed Mode of arrival: ambulatory Limitations: no limitations - History of Present Illness MD Complaint: headache <Ledy Flores - Last Filed: 11/15/22 19:22> <Keara Valles - Last Filed: 11/15/22 22:32> - General Chief Complaint: Headache Stated Complaint: Migraine,face numbness Time Seen by Provider: 11/15/22 19:24 - History of Present Illness Initial Comments: This is a 22 year old female who presents to the emergency department for a headache. States that this started 3 days ago. When she went to work this afternoon, she felt weak, dizzy, and lightheaded. She tried eating, however symptoms persisted. She then also developed numbness in her face and both of her legs. Also states that she has had a hard time speaking over the last few days, in that she is mumbling her words. (Ledy Flores) 22-year-old female who presents the ER today due to headache. Headache began about 3 days ago was gradual in onset and similar to previous headaches but has been more persistent. Patient states she's just been resting and has been feeling very tired. Patient states that she doesn't usually work and had works 30 hours last week and feels like this contributed to having some tension in her neck and shoulders which contributed to her headache. Patient states she feels like she so tired she is thinking slow sometimes having trouble speaking. She was able to go to work today but began to feel lightheaded she thought was because she hadn't had anything to eat or drink so she took a break in a some food but continued to have a headache and decided to come to the ER for evaluation. No vision changes, no photophobia or phonophobia, no neck pain or rigidity, no fevers. This is not the worse headache of her life this is not a headache that was sudden in onset there no focal neurologic defect (Keara Valles) - Related Data Home Medications Medication Instructions Recorded Confirmed FLUoxetine HCL [PROzac] 10 mg PO DAILY 03/02/22 03/02/22 FLUoxetine HCL [PROzac] 20 mg PO DAILY 03/02/22 03/02/22 Vit No.179/Iron/Folic 1 tab PO HS 03/02/22 03/02/22 [ Tablet] Allergies Allergy/AdvReac Type Severity Reaction Status Date / Time kiwi Allergy Unknown Verified 11/15/22 19:23 methylphenidate AdvReac Confusion Verified 11/15/22 19:23 [From Concerta] Review of Systems ROS Other: All systems not noted in ROS Statement are negative. <Ledy Flores - Last Filed: 11/15/22 19:22> ROS Other: All systems not noted in ROS Statement are negative. <Keara Valles P - Last Filed: 11/15/22 22:32> ROS Statement: Those systems with pertinent positive or pertinent negative responses have been documented in the HPI. Past Medical History Past Medical History: No Reported History History of Any Multi-Drug Resistant Organisms: None Reported Past Surgical History: Section Past Anesthesia/Blood Transfusion Reactions: Unable to Obtain Past Psychological History: Anxiety, Depression Smoking Status: Current every day smoker, Vaper Past Alcohol Use History: Occasional Past Drug Use History: Marijuana <Ledy Flores - Last Filed: 11/15/22 19:22> General Exam <Ledy Flores - Last Filed: 11/15/22 19:22> <Keara Valles P - Last Filed: 11/15/22 22:32> - General Exam Comments Initial Comments: Visual Physical Exam Vital signs reviewed General: Well-appearing, nontoxic, no acute distress. Head: Normocephalic, atraumatic Eyes: PERRLA, EOMI ENT: Airway patent Chest: Nonlabored breathing Skin: No visual rash, normal skin tone Neuro: Alert and oriented 3 Musculoskeletal: No gross abnormalities I performed the QuickNote portion of this chart. Signed Ledy Flores PA-C. (Ledy Flores) Physical Exam GENERAL: Patient is well-developed and well-nourished. Patient is nontoxic and well-hydrated and is in no distress. HENT: Normocephalic, Atraumatic. EYES: PERRL, EOMI No papiledema PULMONARY: Unlabored respirations. CARDIOVASCULAR: RRR Warm and well perfused extremities ABDOMEN: Non-distended SKIN: No rashes or bruising : Deferred NEUROLOGIC: Alert and oriented Normal speech Normal gait MUSCULOSKELETAL: Moving all extremities with no apparent injury PSYCHIATRIC: No SI/HI (Keara Valles Chet) Course Vital Signs 11/15/22 19:23 Temperature 98.1 F Pulse Rate 69 Respiratory 18 Rate Blood Pressure 141/90 O2 Sat by Pulse 98 Oximetry Medical Decision Making <Keara Valles - Last Filed: 11/15/22 22:32> - Medical Decision Making Was pt. sent in by a medical professional or institution (, PA, SLITTING AND SHIPPING SUPERVISOR, urgent care, hospital, or fpc...) When possible be specific @ -No Did you speak to anyone other than the patient for history (EMS, parent, family, police, friend...)? What history was obtained from this source @ -No Did you review nursing and triage notes (agree or disagree)? Why? @ -I reviewed and agree with nursing and triage notes Were old charts reviewed (outside hosp., previous admission, EMS record, old EKG, old radiological studies, urgent care reports/EKG's, fpc records)? Report findings @ -No old charts were reviewed Differential Diagnosis (chest pain, altered mental status, abdominal pain women, abdominal pain men, vaginal bleeding, weakness, fever, dyspnea, syncope, headache, dizziness, GI bleed, back pain, seizure, CVA, palpatations, mental health, musculoskeletal)? @ -Differential Headache: Migraine, tension, cluster, carbon monoxide, central venous thrombosis, pension karma temporal arteritis, acute closure glaucoma, intercranial hemorrhage, mastoiditis, sinusitis, head injury, this is not meant to be an all-inclusive list. EKG interpreted by me (3pts min.). @ -As above X-rays interpreted by me (1pt min.). @ -None done CT interpreted by me (1pt min.). @ -None done U/S interpreted by me (1pt. min.). @ -None done What testing was considered but not performed or refused? (CT, X-rays, U/S, labs)? Why? @ -None What meds were considered but not given or refused? Why? @ -IV fluids and IV medications were offered the patient did not want any IV or IM medications Did you discuss the management of the patient with other professionals (professionals i.e. , PA, SLITTING AND SHIPPING SUPERVISOR, lab, RT, psych nurse, dialysis social worker, hammerer helper, teacher, chief digital media officer, case technician)? Give summary @ -No Was smoking cessation discussed for >3mins.? @ -No Was critical care preformed (if so, how long)? @ -No Were there social determinants of health that impacted care today? How? (Homelessness, low income, unemployed, alcoholism, drug addiction, transportation, low edu. Level, literacy, decrease access to med. care, fci, rehab)? @ -No Was there de-escalation of care discussed even if they declined (Discuss DNR or withdrawal of care, Hospice)? DNR status @ -No What co-morbidities impacted this encounter? (DM, HTN, Smoking, COPD, CAD, Cancer, CVA, ARF, Chemo, Hep., AIDS, mental health diagnosis, sleep apnea, morbid obesity)? @ -None Was patient admitted / discharged? Hospital course, mention meds given and route, prescriptions, significant lab abnormalities, going to OR and other pertinent info. @ -Discharge Patient was seen and evaluated history is obtained from patient. Patient had a mild headache she had tried no [id number] remedies, should not try Tylenol or Motrin. She had had an energy drink taking caffeine would help and she had eaten some food. She did not one IV placed she did not want any IM medication she didn't want any needles. She is treated with by mouth Benadryl Reglan Undiagnosed new problem with uncertain prognosis? @ -No Drug Therapy requiring intensive monitoring for toxicity (Heparin, Nitro, Insulin, Cardizem)? @ -No Were any procedures done? @ -No Diagnosis/symptom? @ Headache Acute, or Chronic, or Acute on Chronic? @ -default Uncomplicated (without systemic symptoms) or Complicated (systemic symptoms)? @ -default Side effects of treatment? @ -No Exacerbation, Progression, or Severe Exacerbation? @ -No Poses a threat to life or bodily function? How? (Chest pain, [place], [place], pneumonia, PE, COPD, DKA, ARF, appy, cholecystitis, CVA, Diverticulitis, Homicidal, Suicidal, threat to staff... and all critical care pts) @ -No (Keara Valles) Disposition <Ledy Flores - Last Filed: 11/15/22 19:22> Is patient prescribed a controlled substance at d/c from ED?: No <Keara Valles - Last Filed: 11/15/22 22:32> Clinical Impression: Headache Disposition: HOME SELF-CARE Condition: Stable Instructions (If sedation given, give patient instructions): Acute Headache (ED) Referrals: Ag Chairez MD [Primary Care Provider] - 1-2 days
[2022-11-15 19:26] VITALS: RESP 18
[2022-11-15] MEDS ORDERED: METOCLOPRAMIDE 5 MG TAB PO STA (22:05)
[2022-11-15] MEDS ORDERED: diphenhydrAMINE 25 MG CAP PO STA (22:05)
[2022-11-15] MEDS ORDERED: ACETAMINOPHEN TAB 325 MG TAB PO STA (22:05)
[2022-11-15 22:50] VITALS: BP 142/89; PULSE 68; TEMP 98.9
== END 2022-11-15 22:50 | disposition home or self-care (01) ==
LOC: EC 19:11
DX: G43.909 Migraine, unspecified, not intractable, without status migrainosus (principal); F17.290 Nicotine dependence, other tobacco product, uncomplicated; F12.90 Cannabis use, unspecified, uncomplicated; Z86.59 Personal history of other mental and behavioral disorders; Z91.018 Allergy to other foods; Z88.8 Allergy status to other drugs, medicaments and biological substances
CPT/HCPCS: 99283

== ENCOUNTER 2023-05-10 10:06 | Emergency (ER) | payer OTHER ==
[2023-05-10 10:34] VITALS: RESP 18; TEMP 98.6
[2023-05-10] MEDS: ACETAMINOPHEN TAB 500 MG TAB PO STA (11:40)
--- NOTE | 2023-05-10 12:10 | XR ---
EXAMINATION TYPE: XR chest 2V DATE OF EXAM: 05/10/2023 COMPARISON: 11/21/2020 TECHNIQUE: PA and lateral views submitted. HISTORY: Upper respiratory infection FINDINGS: The lungs are clear and there is no pneumothorax, pleural effusion, or focal pneumonia. Heart size normal and no overt failure. Osseous structures demonstrate hypertrophic and degenerative changes of the spine. IMPRESSION: 1. No acute process.
[2023-05-10] MEDS: IPRATROPIUM-ALBUTEROL 3 ML NEB INHALATION STA (12:35)
--- NOTE | 2023-05-10 12:47 | ED ---
General Adult HPI - General Chief complaint: Upper Respiratory Infection Stated complaint: Cough, congestion, SOB, fever Time Seen by Provider: 05/10/23 10:20 Source: patient, RN notes reviewed Mode of arrival: ambulatory Limitations: no limitations - History of Present Illness Initial comments: 3-year-old female no significant past medical history presents emergency department chief complaint of cold and flulike symptoms. She states that her daughter was diagnosed with influenza A roughly 10 days ago. Patient states that she is also been experiencing similar symptoms over the past 10 days such as runny nose, congestion, cough, shortness of breath. Patient states that she had exercise-induced asthma as a child, and states that she has had dyspnea over the past 2 days. Patient also notes nasal congestion. She denies fevers at home. - Related Data Home Medications Medication Instructions Recorded Confirmed FLUoxetine HCL [PROzac] 10 mg PO DAILY 03/02/22 03/02/22 FLUoxetine HCL [PROzac] 20 mg PO DAILY 03/02/22 03/02/22 Vit No.179/Iron/Folic 1 tab PO HS 03/02/22 03/02/22 [ Tablet] Previous Rx's Medication Instructions Recorded Benzonatate [Tessalon Perles] 100 mg PO TID #15 capsule 05/10/23 Loratadine-Pseudoeph 10-240 mg 1 tab PO DAILY 7 Days #7 tab 05/10/23 [Claritin-D 24 Hour] Allergies Allergy/AdvReac Type Severity Reaction Status Date / Time kiwi Allergy Unknown Verified 05/10/23 10:21 methylphenidate AdvReac Confusion Verified 05/10/23 10:21 [From Concerta] Review of Systems ROS Statement: Those systems with pertinent positive or pertinent negative responses have been documented in the HPI. ROS Other: All systems not noted in ROS Statement are negative. Past Medical History Past Medical History: No Reported History History of Any Multi-Drug Resistant Organisms: None Reported Past Surgical History: Section Past Anesthesia/Blood Transfusion Reactions: Unable to Obtain Past Psychological History: Anxiety, Depression Smoking Status: Current every day smoker, Vaper Past Alcohol Use History: Occasional Past Drug Use History: Marijuana General Exam Limitations: no limitations General appearance: alert, in no apparent distress Head exam: Present: atraumatic, normocephalic, normal inspection Eye exam: Present: normal appearance, PERRL, EOMI. Absent: scleral icterus, conjunctival injection, periorbital swelling ENT exam: Present: normal exam, mucous membranes moist, other (ModerateNasal sinus pressure with palpation, nasal turbinates boggy and edematous) Neck exam: Present: normal inspection. Absent: tenderness, meningismus, lymphadenopathy Respiratory exam: Present: normal lung sounds bilaterally, decreased breath sounds. Absent: respiratory distress, wheezes, rales, rhonchi, stridor Cardiovascular Exam: Present: regular rate, normal rhythm, normal heart sounds. Absent: systolic murmur, diastolic murmur, rubs, gallop, clicks GI/Abdominal exam: Present: soft, normal bowel sounds. Absent: distended, tenderness, guarding, rebound, rigid Extremities exam: Present: normal inspection, full ROM, normal capillary refill. Absent: tenderness, pedal edema, joint swelling, calf tenderness Back exam: Present: normal inspection Neurological exam: Present: alert, oriented X3, CN II-XII intact Psychiatric exam: Present: normal affect, normal mood Skin exam: Present: warm, dry, intact, normal color. Absent: rash Course Vital Signs 05/10/23 05/10/23 05/10/23 10:18 10:46 12:35 Temperature 98.6 F Pulse Rate 77 88 Respiratory 18 18 Rate Blood Pressure 145/85 O2 Sat by Pulse 98 Oximetry 05/10/23 05/10/23 12:45 13:05 Temperature 98.6 F Pulse Rate 86 80 Respiratory 18 Rate Blood Pressure 138/85 O2 Sat by Pulse 99 Oximetry Medical Decision Making - Medical Decision Making Was pt. sent in by a medical professional or institution (, PA, BUILDING PERFORMANCE CONSULTANT, urgent care, hospital, or intermediate...) When possible be specific @ -No Did you speak to anyone other than the patient for history (EMS, parent, family, police, friend...)? What history was obtained from this source @ -No Did you review nursing and triage notes (agree or disagree)? Why? @ -I reviewed and agree with nursing and triage notes Were old charts reviewed (outside hosp., previous admission, EMS record, old EKG, old radiological studies, urgent care reports/EKG's, intermediate records)? Report findings @ -No old charts were reviewed Differential Diagnosis (chest pain, altered mental status, abdominal pain women, abdominal pain men, vaginal bleeding, weakness, fever, dyspnea, syncope, headache, dizziness, GI bleed, back pain, seizure, CVA, palpatations, mental health, musculoskeletal)? @ -COVID 19, RSV, influenza, pneumonia, acute bronchitis, URI, this list is not all inclusive EKG interpreted by me (3pts min.). @ -None X-rays interpreted by me (1pt min.). @ -chest x-ray with no acute cardiopulmonary process CT interpreted by me (1pt min.). @ -None done U/S interpreted by me (1pt. min.). @ -None done What testing was considered but not performed or refused? (CT, X-rays, U/S, labs)? Why? @ -None What meds were considered but not given or refused? Why? @ -None Did you discuss the management of the patient with other professionals (professionals i.e. , PA, BUILDING PERFORMANCE CONSULTANT, lab, RT, psych nurse, social media content specialist, meal cooker, teacher, targeting acquisition officer, clinical case manager)? Give summary @ -No Was smoking cessation discussed for >3mins.? @ -No Was critical care preformed (if so, how long)? @ -No Were there social determinants of health that impacted care today? How? (Homelessness, low income, unemployed, alcoholism, drug addiction, transportation, low edu. Level, literacy, decrease access to med. care, correction, rehab)? @ -No Was there de-escalation of care discussed even if they declined (Discuss DNR or withdrawal of care, Hospice)? DNR status @ -No What co-morbidities impacted this encounter? (DM, HTN, Smoking, COPD, CAD, Cancer, CVA, ARF, Chemo, Hep., AIDS, mental health diagnosis, sleep apnea, morbid obesity)? @ -None Was patient admitted / discharged? Hospital course, mention meds given and route, prescriptions, significant lab abnormalities, going to OR and other pertinent info. @ -Discharged. 23-year-old female with cold and flulike symptoms. On physical exam patient was noted to have mild congestion of the paranasal sinuses with associated shortness of breath. Patient was given breathing treatment which aided in symptom relief. Chest x-ray with no acute cardiopulmonary findings. At this time patient symptoms are likely secondary to viral infection rather than concern for bacterial infection, discussed findings with patient, states that she is not a candidate for antibiotics at this time. Patient will be scribed Tessalon Perles and Claritin-D for symptomatic relief at home. I discussed this case with my attending Dr. Monterroso who is agreeable with plan for discharge Undiagnosed new problem with uncertain prognosis? @ -No Drug Therapy requiring intensive monitoring for toxicity (Heparin, Nitro, Insulin, Cardizem)? @ -No Were any procedures done? @ -No Diagnosis/symptom? @ -Viral sinusitis Acute, or Chronic, or Acute on Chronic? @ -Acute Uncomplicated (without systemic symptoms) or Complicated (systemic symptoms)? @ -uncomplicated Side effects of treatment? @ -No Exacerbation, Progression, or Severe Exacerbation? @ -No Poses a threat to life or bodily function? How? (Chest pain, [place], [place], pneumonia, PE, COPD, DKA, ARF, appy, cholecystitis, CVA, Diverticulitis, Homicidal, Suicidal, threat to staff... and all critical care pts) @ -No Disposition Clinical Impression: Sinusitis, Viral infection Narrative: Return to the emergency department if symptoms worsen or do not improve Disposition: HOME SELF-CARE Condition: Good Instructions (If sedation given, give patient instructions): Cold Symptoms (ED) Prescriptions: Loratadine-Pseudoeph 10-240 mg [Claritin-D 24 Hour] 1 tab PO DAILY 7 Days #7 tab Benzonatate [Tessalon Perles] 100 mg PO TID #15 capsule Is patient prescribed a controlled substance at d/c from ED?: No Referrals: Ag Chairez MD [Primary Care Provider] - 1-2 days Time of Disposition: 12:46
[2023-05-10 13:38] VITALS: BP 138/85; PULSE 80
== END 2023-05-10 13:05 | disposition home or self-care (01) ==
LOC: EC 10:06
DX: B34.9 Viral infection, unspecified (principal); J32.9 Chronic sinusitis, unspecified; F17.290 Nicotine dependence, other tobacco product, uncomplicated; F12.90 Cannabis use, unspecified, uncomplicated; Z91.018 Allergy to other foods; Z88.8 Allergy status to other drugs, medicaments and biological substances
CPT/HCPCS: 71046; 94640; 99285